=== PATIENT | female | born 1965 | race Caucasian/White ===

== ENCOUNTER → 2020-11-12 14:00 | Outpatient (CLI) | payer BC, SELFPAY ==
--- NOTE | ~2020-11-12 | MR_ITS ---
EXAMINATION: MR cervical spine wo/w con DATE: 11/12/2020 15:03 INDICATION: Neuralgia and neuritis. Neck pain. TECHNIQUE: Magnetic resonance imaging (MRI) of the cervical spine was performed without and with 12 m L MultiHance intravenous contrast. Sequences included sagittal and axial T2-weighted FSE, sagittal ST IR FSE, and sagittal and axial T1-weighted FSE. Postcontrast sequences included sagittal and axial T1 -weighted FS FSE. COMPARISON: None FINDINGS: There is 4 degrees levocurvature of cervicothoracic spine. Vertebral body heights are oscar l. There is mildly decreased disc height at C3-C4, C4-C5, and C5-C6. The spinal cord signal intensity is normal. The following disc levels are specifically discussed: C2-C3: The disc does not extend beyond the endplate margin. There is no uncovertebral joint osteoarth ritis. There is mild right facet joint osteoarthritis. There is no neural foraminal stenosis. There i s no central canal stenosis. C3-C4: The disc is bulging. There is moderate bilateral uncovertebral joint osteoarthritis. There is severe bilateral facet joint osteoarthritis. There is mild bilateral neural foraminal stenosis. There is mild central canal stenosis. C4-C5: The disc is bulging. There is mild right and moderate left uncovertebral joint osteoarthritis. There is mild right and severe left facet joint osteoarthritis. There is mild right and moderate lef t neural foraminal stenosis. There is mild central canal stenosis. C5-C6: The disc is bulging. There is mild right uncovertebral joint osteoarthritis. There is moderate right and mild left facet joint osteoarthritis. There is mild right neural foraminal stenosis. There is mild central canal stenosis. C6-C7: There is a central protrusion. There is mild bilateral uncovertebral joint osteoarthritis. The re is moderate bilateral facet joint osteoarthritis. There is mild bilateral neural foraminal stenosi s. There is no central canal stenosis. C7-T1: The disc does not extend beyond the endplate margin. There is no uncovertebral joint osteoarth ritis. There is severe bilateral facet joint osteoarthritis. There is mild bilateral neural foraminal stenosis. There is no central canal stenosis. IMPRESSION: 1. Moderate cervical spondylosis. Reviewed, dictated and finalized at location A. CULTURAL LENDER
[2020-11-12 14:34] LABS: Estimated Glomerular Filt Rate > 60
== END ==
PROVIDERS: PCP Physician Assistant; Visit Provider Physician Assistant
DX: M79.2 Neuralgia and neuritis, unspecified (principal); M47.22 Other spondylosis with radiculopathy, cervical region
CPT/HCPCS: 72156; A9577

== ENCOUNTER → 2021-12-31 10:18 | Outpatient (CLI) | payer BC, SELFPAY ==
--- NOTE | ~2021-12-31 | DEXA_ITS ---
Bone Density Report Name: KAMRAN FAY Age: 56 Sex: Female Ethnicity: White Date of : 1965 Indication: osteopenia; prior fracture; hysterectomy; postmenopausal Referring Provider: RIVAS CROCKETT Study: Bone densitometry was performed. Exam Date: December 31, 2021 Accession number: [id number] Bone Density: Region BMD T-score Z-score Classification AP Spine (L1, L2, L3) 0.837 -1.6 -0.4 Osteopenia Femoral Neck (Left) 0.655 -1.7 -0.6 Osteopenia Total Hip (Left) 0.856 -0.7 0.1 Normal Femoral Neck (Right) 0.652 -1.8 -0.6 Osteopenia Total Hip (Right) 0.810 -1.1 -0.3 Osteopenia Total Hip Mean 0.833 -0.9 -0.1 Normal World Health Organization criteria for BMD impression classify patients as: Normal (T-score at or above -1.0), Osteopenia (T-score between -1.0 and -2.5), or Osteoporosis (T-score at or below -2.5). 10-year Fracture Risk(1): Major Osteoporotic Fracture 14% Hip Fracture 1.5% Reported Risk Factors: [place] (), Neck BMD=0.652, BMI=24.3, previous fracture (1) FRAX(R) Version 3.08. Fracture probability calculated for an untreated patient. Fracture probability may be lower if the patient has received treatment. Previous Exams: Region Exam Age BMD T-score BMD Change BMD Change Date g/cm2 vs Baseline vs Previous AP Spine(L1, L2, L3) 12/31/2021 56 0.837 -1.6 -0.214* -0.027* 03/03/2019 53 0.864 -1.4 -0.187* -0.202* 08/05/2015 50 1.066 0.4 0.015 0.015 05/15/2011 46 1.051 0.3 Total Hip(Left) 12/31/2021 56 0.856 -0.7 -0.070* -0.021 03/03/2019 53 0.876 -0.5 -0.049* -0.076* 08/05/2015 50 0.952 0.1 0.027 0.027 05/15/2011 46 0.926 -0.1 Total Hip(Right) 12/31/2021 56 0.810 -1.1 -0.071* -0.001 03/03/2019 53 0.811 -1.1 -0.070* -0.096* 08/05/2015 50 0.906 -0.3 0.026 0.026 05/15/2011 46 0.880 -0.5 *Denotes significance at 95% confidence level, LSC for AP Spine = 0.022 g/cm2, LSC for Total Hip = 0.027 g/cm2 Clinical Information Provided by Patient: Has had a low trauma fracture Has used the following medications: Vitamin D, Calcium, MTV Has the following medical conditions: Hysterectomy Patient maximum height was 63.1 Menopause Age: 31 No regular weight bearing exercise Drinks caffeinated beverages Onset of menses at age 12 Number of children 2
== END ==
PROVIDERS: Visit Provider Obstetrics & Gynecology
DX: Z78.0 Asymptomatic menopausal state (principal); M85.88 Other specified disorders of bone density and structure, other site; M85.852 Other specified disorders of bone density and structure, left thigh; M85.851 Other specified disorders of bone density and structure, right thigh
CPT/HCPCS: 77080

== ENCOUNTER 2023-01-04 00:48 | Day surgery (SDC) | payer BC, SELFPAY ==
[2022-12-22 13:16] VITALS: BMI 24.0
[2023-01-04 06:17] VITALS: BP 123/83; PULSE 71; RESP 16; TEMP 36.2; O2SAT 100; BMI 26.1
[2023-01-04] MEDS: LACTATED RINGERS 1,000 ML 150 ML IV CONT (06:25)
--- NOTE | 2023-01-04 07:24 | WPDANESEPPF ---
Anes - Initial Pre Proc Eval Procedure: Operation Date: 01/04/23 07:30 Proposed Procedures p Screening Colonoscopy - Eduardo Lr MD Date/Time: 01/04/23 07:24 Surgeon: Eduardo Lr MD Pre Op Diagnosis: neoplasm screening Patient Data Age: 57 Gender: F Height: 1.6 m Weight: 66.9 kg Last Vital Signs Temp 36.2 C L 01/04/23 06:17 Pulse 71 01/04/23 06:17 Resp 16 01/04/23 06:17 BP 123/83 01/04/23 06:17 Pulse Ox 100 01/04/23 06:17 O2 Del Method Room Air 01/04/23 06:17 Allergies Allergy/AdvReac Type Severity Reaction Status Date / Time iodixanol Allergy Severe Hives / Verified 01/04/23 06:14 Red Face Home Medications Medication Instructions Recorded Confirmed Type multivitamin 1 tablet PO DAILY 09/16/21 01/04/23 History metoprolol succinate 50 mg 50 mg PO DAILY #90 tabs 08/06/22 01/04/23 Rx tablet,extended release 24 hr (Toprol XL) albuterol sulfate 90 mcg/actuation 2 inh inhalation Q6H PRN Shortness 12/22/22 01/04/23 History aerosol inhaler Of Breath calcium 600 mg capsule 600 mg PO DAILY 12/22/22 01/04/23 History simvastatin 10 mg tablet 10 mg PO DAILY 12/22/22 01/04/23 History Patient hx anesthesia problems: none Family hx anesthesia problems: none Results Review: All pre-operative results and documents have been reviewed as part of the pre-operative evaluation. [facility] Past Medical History Medical History Asthma Benign hypertension Benign mole BMI 24.0-24.9, adult C7 radiculopathy Cervical disc disorder at C6-C7 level with radiculopathy Contact dermatitis and eczema Contact dermatitis and eczema Dermatitis Dermatofibroma Ganglion, unspecified site GERD (gastroesophageal reflux disease) Hematuria Hyperlipidemia IBS (irritable bowel syndrome) Neck Pain Post-menopausal Radicular pain in left arm Seasonal allergies Skin cancer screening Skin neoplasm Vaginal delivery x 2 Surgical History Surgical History H/O bilateral cataract extraction H/O: hysterectomy History of back surgery History of cholecystectomy History of Mohsen fundoplication Family History Family History Father Hypertension Family history of coronary artery disease Diabetes mellitus Colon polyp SCC (squamous cell carcinoma) BCC (basal cell carcinoma of skin) Mother Cerebrovascular accident Sibling BCC (basal cell carcinoma of skin) Other Family history of cardiovascular disease Social History Social History Smoking status: Never smoker Second hand tobacco smoke exposure: No Alcohol intake: current Alcohol use details: rarely Substance use: never Substance use type: does not use Living arrangements: with family Occupation/Education: retired Gender identity (if verbalized by the patient): Female Spiritual care concerns: No Anes - Eval Final PreProcedure Day of Procedure 01/04/23 07:24 Patient weight: overweight Heart: regular rate and rhythm Lungs: clear to auscultation and normal air movement Airway: Mallampati scale class II Neurological: alert and oriented Last oral intake: >/= 8 hours ASA classification: II Emergent: no Anesthetic plan: proceed Anesthesia type and monitoring: general GIVS Results Review: All pre-operative results and documents have been reviewed as part of the pre-operative evaluation. Informed Consent: The patient's anesthetic plan and its attendant risks and benefits were discussed with the patient/family/POA. Questions were solicited and answers provided to the satisfaction of the patient/family/POA.
--- NOTE | 2023-01-04 07:52 | PM.HPGS ---
History of Present Illness History of Present Illness Consent: Risks, benefits, and alternatives have been discussed and questions answered. Patient agrees to proceed with procedure. Chief complaint: neoplasm screening Narrative: Josselyn Kwon is a 57 year old female Presents for screening colonoscopy. Patient's current weight appetite and bowel movements are normal. She denies abdominal pain. She has had no bleeding. Family history is significant for colon polyps within the family. Patient's previous colonoscopy 5 years ago was unremarkable. Review of Systems Review of Systems: Review of systems noncontributory. [facility] Past Medical History Medical History Asthma Benign hypertension Benign mole BMI 24.0-24.9, adult C7 radiculopathy Cervical disc disorder at C6-C7 level with radiculopathy Contact dermatitis and eczema Contact dermatitis and eczema Dermatitis Dermatofibroma Ganglion, unspecified site GERD (gastroesophageal reflux disease) Hematuria Hyperlipidemia IBS (irritable bowel syndrome) Neck Pain Post-menopausal Radicular pain in left arm Seasonal allergies Skin cancer screening Skin neoplasm Vaginal delivery x 2 Surgical History Surgical History H/O bilateral cataract extraction H/O: hysterectomy History of back surgery History of cholecystectomy History of Mohsen fundoplication Family History Family History Father Hypertension Family history of coronary artery disease Diabetes mellitus Colon polyp SCC (squamous cell carcinoma) BCC (basal cell carcinoma of skin) Mother Cerebrovascular accident Sibling BCC (basal cell carcinoma of skin) Other Family history of cardiovascular disease Social History Social History Smoking status: Never smoker Second hand tobacco smoke exposure: No Alcohol intake: current Alcohol use details: rarely Substance use: never Substance use type: does not use Living arrangements: with family Occupation/Education: retired Gender identity (if verbalized by the patient): Female Spiritual care concerns: No Meds Home Medications and Allergies Home Medications Medication Instructions Recorded Confirmed Type multivitamin 1 tablet PO DAILY 09/16/21 01/04/23 History metoprolol succinate 50 mg 50 mg PO DAILY #90 tabs 08/06/22 01/04/23 Rx tablet,extended release 24 hr (Toprol XL) albuterol sulfate 90 mcg/actuation 2 inh inhalation Q6H PRN Shortness 12/22/22 01/04/23 History aerosol inhaler Of Breath calcium 600 mg capsule 600 mg PO DAILY 12/22/22 01/04/23 History simvastatin 10 mg tablet 10 mg PO DAILY 12/22/22 01/04/23 History Allergies Allergy/AdvReac Type Severity Reaction Status Date / Time iodixanol Allergy Severe Hives / Verified 01/04/23 06:14 Red Face Vital Signs Vital Signs - 24 hr 01/04/23 06:17 Temperature 97.2 F L Pulse Rate 71 Respiratory Rate 16 Blood Pressure 123/83 Pulse Oximetry 100 Oxygen Delivery Room Air Exam Narrative: Physical exam reveals patient be alert. Vital signs stable. HEENT exam is unremarkable. Lungs are clear to auscultation and percussion. Heart is without murmur or extra sounds. Abdomen bowel sounds are present soft nontender with no organomegaly. Digital external rectal exam is normal. Assessment and Plan Assessment and plan (1) Family history of colonic polyps: Code(s): Z83.71 - Family history of colonic polyps Status: Acute Assessment and Plan: Patient has a family history of colon polyps. Plan for screening colonoscopy. Further recommendations may be given after endoscopy.
[2023-01-04 07:54] VITALS: BP 95/62; PULSE 73; RESP 15; O2SAT 98
[2023-01-04 08:04] VITALS: BP 94/62; PULSE 66; RESP 12; O2SAT 100
[2023-01-04 08:14] VITALS: BP 100/63; PULSE 65; RESP 14; O2SAT 100
== END 2023-01-04 08:25 | disposition home or self-care (01) ==
PROVIDERS: PCP Family Medicine; Visit Provider Internal Medicine Gastroenterology
PROC: 0DJD8ZZ Inspection of Lower Intestinal Tract, Via Natural or Artificial Opening Endoscopic (ICD-10-PCS; CPT 45378; principal; 2023-01-04 07:30)
DX: Z12.11 Encounter for screening for malignant neoplasm of colon (principal); K57.30 Diverticulosis of large intestine without perforation or abscess without bleeding; D12.5 Benign neoplasm of sigmoid colon; Z83.71 Family history of colonic polyps; J45.909 Unspecified asthma, uncomplicated; I10 Essential (primary) hypertension; K21.9 Gastro-esophageal reflux disease without esophagitis; E78.5 Hyperlipidemia, unspecified; Z79.51 Long term (current) use of inhaled steroids
CPT/HCPCS: 45385; 88305; 88342; J2704; J7120

== ENCOUNTER 2024-01-27 09:11 | Outpatient (CLI) | payer BC, SELFPAY ==
--- NOTE | ~2024-01-27 | XR_ITS ---
EXAMINATION: XR lumbar spine 2-3V DATE: 01/27/2024 09:47 INDICATION: Low back pain TECHNIQUE: Anteroposterior and lateral views of the lumbar spine, and cone-down lateral view of the l umbosacral junction were obtained. COMPARISON: None. FINDINGS: There are changes of anterior posterior fusion at L4-5. Bone alignment is normal. There is no fracture. There is mild loss of intervertebral disc space height at L5-S1 and L2-3. The vertebral body heights are maintained. Surgical clips in the right upper quadrant are likely from prior cholecy stectomy. IMPRESSION: 1. Surgical changes and mild lumbar spondylosis without acute findings. Reviewed, dictated and finalized at location F.
--- NOTE | ~2024-01-27 | XR_ITS ---
EXAMINATION: XR hip LT 2V w AP pelvis INDICATION: Left hip pain TECHNIQUE: AP view the pelvis and two views of the left hip are obtained COMPARISON: None available FINDINGS: Bone alignment is normal. There is no fracture. Surgical changes are noted at L5-S1. The so ft tissues are unremarkable. IMPRESSION: 1. No acute osseous abnormality. Reviewed, dictated and finalized at location F.
== END 2024-01-27 09:12 ==
PROVIDERS: PCP Chiropractor; Visit Provider Chiropractor
DX: M53.3 Sacrococcygeal disorders, not elsewhere classified (principal); M47.896 Other spondylosis, lumbar region
CPT/HCPCS: 72100; 73502

== ENCOUNTER 2025-01-25 01:08 | Day surgery (SDC) | payer OTHER, SELFPAY ==
[2025-01-17 14:17] VITALS: BMI 24.7
--- OUTSIDE RECORDS SUMMARY | 2025-01-25 01:13 | XMS_ITS | Clinical Summary ---
Author Organization [facility] Address [address] 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 Gender Identity Not on file Sexual Orientation Not on file Plan of Treatment Health Maintenance Due Date Last Done Comments DTAP/TDAP/TD VACCINES (1 - Tdap) 1983 PAP SMEAR 1985 CERVICAL CANCER SCREENING 1994 HPV/Cotest 1994 PAP SMEAR 1994 BREAST CANCER SCREENING 2004 COLORECTAL SCREENING 2009 Colorectal Cancer Screening 2009 FIT-DNA Q 3 years 2009 FIT/FOBT Q 1 year 2009 Flex Sig/CT Colonography Q 5 years 2009 ZOSTER VACCINE (1 of 2) 2014 INFLUENZA VACCINE (#1) 2024 RSV VACCINE (60+ or ) (1 - 1-dose 75+ series) 2039 HEPATITIS B VACCINES Aged Out No long er eligible based on patient's age to complete this topic Care Teams It Specialist Relationship Specialty Start Date End Date Zulma Roberts MD [address] [place] [address] PCP - General Family Practice 11/30/22
--- OUTSIDE RECORDS SUMMARY | 2025-01-25 01:13 | XMS_ITS | Encounter Summary ---
Author Organization [facility] Address [address] [place] [address] Care Team Providers Care Jitney Driver Name Role Phone Zulma Roberts MD Primary Care Provider [phone] Encounter Details Date Type Department Care Team (Late st Contact Info) Description 12/19/2024 Results Follow-Up [facility] [address] [place] [address] Krystal Nelson NP [address] [place] [address] Social History Tobacco Use Types Packs/Day Years Used Date Smoking Tobacco: Never Smokeless Tobacco: Never Alcohol Use Standard Drinks/Week Comments No 0 (1 standard drink = 0.6 oz pur e alcohol) Comments Unknown Sex and Gender Information Value Date Recorded Sex Assigned at Not on file Legal 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 Gender Identity Not on file Sexual Orientation Not on file documented as of this encounter Plan of Treatment Not on file documented as of this encounter Visit Diagnoses Not on filedocumented in this encounter Additional Health Concerns Infection Onset Date Last Indicated Resolved Time COVID: Suspected 12/19/2024 12/19/2024 12/19/2024 11:48 AM PAPER BOX CUTTER Influenza, adult 12/19/2024 12/19/2024 12/26/2024 3:05 AM PAPER BOX CUTTER documented as of this encounter Care Teams Jitney Driver Relationship Specialty Start Date End Date Zulma Roberts MD PCP - General Family Medicine 05/21/22 documented as of this encounter
--- OUTSIDE RECORDS SUMMARY | 2025-01-25 01:13 | XMS_ITS | Continuity of Care Document ---
Author Organization [facility] Address [address] [place] [address] [address] [facility] [address] [place] [address] Phone Care Team Providers Care Glazing Machine Operator Name Role Phone Michel Vo Unavailable Unavailable Advance Directives Directive Yes / No Effective Date File Name No Information Encounters Encounter Description Practice Location Reason(s) For Visit Diagnoses Date Provider Providers Copied on Encounter [facility], [address] [place] [address] [address], [place], [place], [id number], [place] tel:[phone] [facility] No Information 1-[address] Gilda Pearson. [address] , [address], [place], [address], [place]. tel:[phone] Family History Family Member Type Diagnosis Age At Onset No Information Payers Payer name Insurance type Covered libertarian ID Authoriza tion(s) No Information Social History Type Description Quantity Date Captured Comments Sex Female Smoking Status No Information Chief Complaint And Reason For Visit No Information Reason For Referral Reason For Referral No Information History Of Present Illness Encounter Date Complaint History Of Prese nt Illness No Information Functional Status Date Functional Assessmen t No Information Instructions Date Instruction Additional Infor mation No Information Assessments Type Assessment Date No Information Patient Care Teams Name Effective Dates (start - stop) Status Members No Information
--- OUTSIDE RECORDS SUMMARY | 2025-01-25 01:13 | XMS_ITS | Data Portability ---
Author Organization [facility], Main Office Address [address] [place] [address] [address] [place] [address] Care Team Providers Care Continuity Writer Name Role Phone RIVAS CROCKETT Referring Provider [phone] RIVAS CROCKETT Primary Care Provider [phone] Assessment No assessment recorded. Plan of Treatment Reminders Order Date Submit Date Provider Last Modified By Organization Details Last Modified Time Details Appointments None record ed. Lab None record ed. Referral None record ed. Procedures None record ed. Surgeries None record ed. Imaging None record ed. Medication Orders None record ed. Patient TargetsNo targets recorded. Patient Instructions Encounter Date Encounter Id Patient Instructions Last Modified By Organization Details Last Modified Time 09/10/2018 [id number] Patient counsele d to F/U immediately if temp. greater than 100.4, if is unable to urinate, increased rectal pain or any other concerns. Not available 09/15/2018 18:53:27 She will follow up with me only as needed. I advised that if she feels she needs another treatment the soonest I would see her would be in 8 weeks. On today's visit I spent a total of {{20# 30 35 40 45 50 55 60}} minutes [id number] with the patient and over 50% of this time was spent discussing treatment options, risks/benefits of each option and alternatives. Not available 09/15/2018 18:54:05 Reason for Referral None Reported. Problems Name Problem SNOMED Code Status Onset Date Resolution Date Notes Provider Name and Address Organization Details Recorded Time External hemorrhoids 26199909 Active 2016 Shannon Pina MD [address], [place], [address] , [facility] 11/05/201 8 23:52:45 Residual hemorrhoidal skin tags 41729399 Active 2016 Shannon Pina MD [address] [place] [address],[address], [address], [facility] 8 23:53:04 Pile easily reducible 249667153 Active 2016 Tx #1: 12/08/16 1.2 x 10 LL Tx #2: 7 1.2 x 8 RP Tx #3: 7 1.1 x 6 RA Tx #4: 7 1.2 x 6 LL Tx #5: 03/05/17 1.2 x 4 RP and 1.2 x 3 RA Tx #6: 1.2 x 5 RP, x 5 LL and x 2 RA Shannon Pina MD [address] [place] [address],[address], [address] , [facility] 8 18:41:55 Screening for malignant neoplasm of colon Active 2017 Shannon Pina MD [address] [place] [address],[address], [address], [facility] 8 18:52:53 Problem Notes None recorded. Procedures Surgical History Date Name Laterality Status Provider Name and Address Organization Details Recorded Time 09/10/20 18 IRC completed Shannon Pina MD [address] [place] [address],[address], [place], [address], [facility] 09/15/2018 18:42:43 08/01/20 18 Date of Last Pap Smear [facility] 09/10/2018 13:35:31 03/01/20 18 Date of Last Mammogram completed [facility] 09/10/2018 13:35:28 11/01/19 18 Colonoscopy completed [facility] 09/10/2018 13:34:31 11/01/19 09 Colonoscopy completed Shannon Pina MD [address], [place], [address], [facility] 09/05/2018 23:52:08 11/01/18 98 Back Surgery completed [facility] 09/10/2018 13:34:40 Unlisted px posterior segmnt completed [facility] 07/19/2018 13:29:41 Cholecystectomy completed [facility] 07/19/2018 13:31:18 Hysterectomy completed [facility] 07/19/2018 13:31:28 Unlisted procedure stomach completed [facility] 07/19/2018 13:32:37 Bladder Surgery completed [facility] 09/10/2018 13:35:01 Mohsen fundoplication completed [facility] 09/10/2018 13:35:09 Imaging Results None recorded. Procedure Notes None recorded. Medical Equipment None Reported. Allergies Allergen ID Allergen Name Allergen Category Reaction Reaction Severity Criticality Documentation Date Start Date Code Code System Note Provider Name and Address Organization Details Recorded Time 1613 Visipaque medicatio n Not available Not available Not available 07/19/2018 90457 1 RxNorm Not Available Not Available Not Available Medications Name Sig Start Date Stop Date Status Note LastModified by Organization Details LastModified Time Toprol XL 50 mg tablet,ext ended release Take 1 tablet every day by oral route. active Not Available Not Available No t Available Fish Oil active Not Available Not Avai lable Not Available fiber active Not Available Not Availa ble Not Available Mobic active Not Available Not Availa ble Not Available turmeric active Not Available Not Avai lable Not Available Vitals Date Recorded Body weight Body mass index (BMI) Body height Body temperature Respiratory rate Heart rate Systolic blood pressure Diastolic blood pressure Provider Name and Address Organization Details Last Updated DateTime 8 [address]3080.6 9 g 23.9 kg/m2 160.02 cm 98.5 [degF] 12 /min 75 /min 125 mm[Hg] 84 mm[Hg] [facility] 8 13:44:04 Social History Question Answer Notes LastModified by Organizat ion Details LastModified Time Tobacco Smoking Status Never Smoker Sammie barnett, [facility] 07/19/2018 13:34:00 How Much Tobacco Do You Chew? None [email or web address] Information not available 07/19/2018 Alcohol Use Yes [email or web address] Information not available 09/10/2018 Caffeine Use Yes [email or web address] Informatio n not available 09/10/2018 Caffeine Type Iced Tea [email or web address] Informati on not available 09/10/2018 Caffeine Amount 1-2/day [email or web address] Information not available 09/10/2018 Illicit Drug Use No [email or web address] Information not available 07/19/2018 What Was The Date Of Your Most Recent Tobacco Screening? 09/15/2018 Information n ot available 05/25/2019 Sex: Unknown Functional Status None recorded. Mental Status None recorded. Family History Relationship Description Onset Age of this Age Resolved Age Notes LastModified by Organization Details LastModified Time Father Coronary arterioscler osis 52 Not available 08/2018 13:32:44 Father Myocardial infarction 52 [email or web address] Not available 13:32:55 Father Polyp of colon [email or web address] Not available 08/2018 13:33:05 Father Hypertensive disorder [email or web address] Not available 08/2018 13:33:10 Mother Cerebrovascu lar accident 65 Not available 09/10/2018 13:33:30 Medical History Condition Response Arthritis/Gout Y Reflux/GERD Y Hypertension Y High Cholesterol Y Gynecological History Statement/Question Response Number of Pregnancies? 2 Tear or Laceration During Delivery? N Date of Last Mammogram 03/01/2018 Could You Be or Are You Currently Pregna nt? N Number of C-Sections? 0 Number of Vaginal Deliveries? 2 Accidental Bowel Leakage Post Delivery? N Episiotomy During Delivery? Y Date of Last Pap Smear 08/01/2018 Obstetrics History GPAL:G 0 P 0 0 0 0 Past Encounters Encounter ID Performer Location Encounter Start Date Encounter Closed Date Diagnosis/Indication Diagnosis SNOMED-CT Code Diagnosis ICD10 Code Diagnosis Note [id number] Shannon Pina MD Main Office [address] [facility] [address] [place] [address] 09/10/2018 12:48:16 09/10/2018 14:13:48 Pile easily reducible 258710895 K64.1 Stage 2 internal hemorrhoid s: She has done well with infrared coagulatio n in the past and I think she would benefit now. I reviewed full informed consent with her including risks/bene fits and alternativ es. She wanted to proceed with treatment. Her 6th overall (1st in this series) treatment was done today on all 3 areas. External hemorrhoids 239 38609 K64.4 These will improve with IRC. She understand s the only way to directly treat external hemorrhoid s would be with surgery and she does not wish to pursue this and her hemorrhoid s are not bad enough to require surgery. She of course needs to continue with her high fiber diet and drinking plenty of water to maintain soft daily BM's. I advised her to take a fiber supplement if she needs. Screening for malignant neoplasm of colon 064633877 Z12.11 She is up to date with her colonoscop ies and is not due again until the spring. Health Concerns Section Related Observation LastModified by Organization Detai ls LastModified Time None Recorded Concern Status LastModified by Organization Details LastModified Time None Recorded Advance Directives Directive None Recorded Payers Encounter Date Sequence Insurance Name Policy Number Policy Galarza Covered Member ID Galarza Member ID Guarantor Name 09/10/2018 1 [place] ([place] [id number] Sean Kwon [id number] Sean Kwon Notes Date Note Type Note Provider Name and Address Organization Details Recorded Time 09/10/2018 text/html See previous visits. She states she was doing extremely well until she had her colonoscopy last spring. This caused her symptoms to flare somewhat. Initially they were minor and intermittent but they have been worsening/becomeing more persistent. Bleeding: She has had only a minimal amount of bright red blood on the wipe on a few occasions. She has not had any heavy bleeding and no leakage of blood in between BM's. Pain: None Itching: She has had some minor itching. Discharge: It is sometimes hard to get clean after BM's because of swelling and irritation. She does not have difficulty staying clean - she does not have to re-wipe. She has no drainage. Prolapse: No External swelling: She has had some external swelling after BM's and when she is more flared. Discomfort: She has some external irritation and discomfort. She has minor internal pressure, a sense of being blocked when trying to have a BM and a sense of incomplete emptying after BM's. Previous Hemorrhoid Treatment: Only the IRC treatments here. Previous Lower GI Endoscopy: She is up to date on her colonoscopies Bowel Habits: Her BM's have been soft and daily with dietary fiber. Shannon Pina MD [address], [place], [address], [facility] 09/15/2018 18:55:15 OBGyn Episode No OBEpisode recorded.
--- OUTSIDE RECORDS SUMMARY | 2025-01-25 01:13 | XMS_ITS | Clinical Summary ---
Author Organization [facility] [address] Address [address] [place] [address] Care Team Providers Care Front Desk Assistant Name Role Phone Zulma Roberts MD Primary Care Provider [phone] Allergies Active Allergy Reactions Criticality Noted Date Comments Iodixanol Hives,Swelling Medium Medications metoprolol XL (TOPROL-XL) 50 mg 24 hr tablet Take 1 tablet (50 mg total) by mouth daily Active albuterol HFA (PROVENTIL HFA,VENTOLIN HFA,PROAIR HFA) 90 mcg/actuation inhalerIndication s:H/O wheezing Inhale 2 puffs every 6 (six) hours as needed for wheezing 3 each 4 2 Active guselkumab (Tremfya) 100 mg/mL syringe subcutaneous syringe mg, 0 4 Active loteprednol 0.2 % drops,suspension 1 drop 2 (two) times a day 5 Active simvastatin (ZOCOR) 10 mg tablet Take 1 tablet (10 mg total) by mouth daily Active benzonatate (TESSALON) 200 mg capsuleIndication s:Influenza A Take 1 capsule (200 mg total) by mouth 3 (three) times a day as needed for cough keep tessalon out of reach of children, especially children under the age of 10, due to possible serious risk such as if ingested by children under the age of 10. 30 capsule 5 Active Active Problems Problem Noted Date Diagnosed Date Palpitations 11/22/2018 Hypoglycemia 03/17/2014 Overview (02/05/2017): HYPOGLYCEMIA NOS Knee pain 11/02/2013 Encounters Date Type Department Care Team Description 12/19/2024 11:45 AM TELEMARKETING MANAGER Ancillary Procedure [facility] Imaging at [address] [address] Influenza A 12/19/2024 11:30 AM TELEMARKETING MANAGER Office Visit [facility] at [address] [phone] Krystal Nelson NP Influenza A (Primary Dx); Exacerbation of asthma, unspecified asthma severity, unspecified whether persistent 12/19/2024 Results Follow-Up [facility] at [address] [phone] Krystal Nelson NP 11/16/2024 12:17 PM TELEMARKETING MANAGER - 11/16/2024 11:59 PM TELEMARKETING MANAGER Hospital Encounter [facility] [address] [place] [address] Discharge Disposition: Discharge to home or self care 11/16/2024 12:15 PM TELEMARKETING MANAGER Office Visit [facility] [address] [place] [address] Doanld Urbina PA Contusion of right knee, initial encounter (Primary Dx); Acute pain of right knee from Last 3 Months Surgical History Surgery Date Site/Laterality Comments CHOLECYSTECTOMY Cholecystectomy HYSTERECTOMY 11/01/1996 - 10/31/1997 DIANNE FUNDOPLICATION 11/01/2006 - 10/31/2007 Medical History Medical History Date Comments Hx Other Medical fundoplication Hypertension Dizziness Hyperlipidemia Acid indigestion Arthritis Family History Medical History Relation Name Comments Heart attack Father Hyperlipidemia Father [place] disease Mother Stroke Mother Other Other No family histo ry of Diabetes mellitus; Hypothyroidism Sister Relation Name Status Comments Brother (Age 3 days) Father Alive Mother (Age 65) Other Sister Alive Social History Tobacco Use Types Packs/Day Years Used Date Smoking Tobacco: Never Smokeless Tobacco: Never Alcohol Use Standard Drinks/Week Comments No 0 (1 standard drink = 0.6 oz pur e alcohol) Comments Unknown Sex and Gender Information Value Date Recorded Sex Assigned at Not on file Legal Sex Female 1:34 AM TELEMARKETING MANAGER Gender Identity Not on file Sexual Orientation Not on file Obstetrics History Last Filed Vital Signs Vital Sign Reading Time Taken Comments Blood Pressure 142/90 12/19/2024 11:27 AM TELEMARKETING MANAGER Pulse 98 12/19/2024 11:44 AM TELEMARKETING MANAGER Temperature 36.9 C (98.5 F) 12/19/2024 11:27 AM TELEMARKETING MANAGER Respiratory Rate 20 12/19/2024 11:27 AM TELEMARKETING MANAGER Oxygen Saturation 99% 12/19/2024 11:44 AM TELEMARKETING MANAGER Inhaled Oxygen Concentration - - Weight 63.5 kg (140 lb) 12/19/2024 11:27 AM TELEMARKETING MANAGER Height 160 cm (5' 3 ) 11/16/2024 12:10 PM TELEMARKETING MANAGER Body Mass Index 24.8 11/16/2024 12:10 PM TELEMARKETING MANAGER Plan of Treatment Health Maintenance Due Date Last Done Comments Breast Cancer Screening-Mammogram 1964 Colon Cancer Screening-Colonoscopy 1965 Depression Screening 1964 Hepatitis C Screening 1964 DTaP/Tdap/Td Vaccine (1 - Tdap) 1975 Hepatitis B Screening 1982 Regular Well Visit/Exam 18-64 1982 Pneumococcal vaccine <65 (1 of 2 - PCV) 1983 Zoster Vaccine (1 of 2) 2014 Covid-19 Vaccine (4 - 2023-2 5 season) 2024 11/04/2021, 02/03/2021, 01/13/2021 Influenza Vaccine (#1) 2024 , 08/05/2020, 08/03/2019, Additional history exists Procedures Procedure Name Priority Date/Time Associated Diagnosis Comments XR CHEST PA LATERAL 2 VIEWS Schedule JAH, Read JAH (Appt Today, Awaiting Results) 12/19/2024 11:51 AM TELEMARKETING MANAGER Influenza A POC INFLUENZA A/B, COVID-19 ANTIGEN Routine 12/19/2024 11:47 AM TELEMARKETING MANAGER Influenza A POCT RAPID STREP Routine 12/19/2024 11:4 6 AM TELEMARKETING MANAGER Influenza A XR KNEE RIGHT 3 VIEWS Schedule Routine, Read Routine (OP Routine) 11/16/2024 12:25 PM TELEMARKETING MANAGER Acute pain of right knee from Last 3 Months Results * XR Chest PA Lateral 2 Views (12/19/2024 11:51 AM TELEMARKETING MANAGER) Anatomical Region Laterality Modality Body, Chest N/A Digital Radiogra phy 12/19/2024 12:3 2 PM TELEMARKETING MANAGER Narrative 12/19/2024 12:32 PM TELEMARKETING MANAGER EXAM DESCRIPTION: XR CHEST PA LATERAL 2 VIEWS REASON FOR STUDY: cough Influenza +. Pt complains of cough since . History of asthma, and right chest tube before. Non-smoker. TECHNIQUE: Frontal and lateral radiographic view(s) of the chest. COMPARISON: None FINDINGS: LUNGS: No focal opacity, pleural effusion, or pneumothorax. HEART/MEDIASTINUM: Cardiac silhouette normal in size. Mediastinal and hilar contours appear normal. LINES/TUBES: None. BONES: No acute osseous abnormality. IMPRESSION: No acute cardiopulmonary abnormality. THIS IS AN ELECTRONICALLY VERIFIED FINAL REPORT 12/19/2024 12:32 PM - Electronically signed by Serjio Guerrero M.D. AM T: Report ID: [id number] Reading Location: [id number] Procedure Note Serjio Guerrero MD - 12/19/2024 EXAM DESCRIPTION: XR CHEST PA LATERAL 2 VIEWS REASON FOR STUDY: cough Influenza +. Pt complains of cough since . History of asthma, and right chest tube before. Non-smoker. TECHNIQUE: Frontal and lateral radiographic view(s) of the chest. COMPARISON: None FINDINGS: LUNGS: No focal opacity, pleural effusion, or pneumothorax. HEART/MEDIASTINUM: Cardiac silhouette normal in size. Mediastinal andhilar contours appear normal. LINES/TUBES: None. BONES: No acute osseous abnormality. IMPRESSION: No acute cardiopulmonary abnormality. THIS IS AN ELECTRONICALLY VERIFIED FINAL REPORT 12/19/2024 12:32 PM - Electronically signed by Serjio Guerrero M.D. AM T: Report ID: [id number] Reading Location: [id number] Krystal Nelson SHORE WORKING SUPERVISOR IMG XR PROCEDURES Final Result * (ABNORMAL) POC Influenza A/B, COVID-19 antigen (12/19/2024 11:47 AM TELEMARKETING MANAGER) Influenza A Ag, POC Positive(A) Negative [facility] Influenza B Ag, POC Negative Negative [facility] COVID-19 Ag POC Presumptive Negative Presumptive Negative, Invalid [facility] Nasal 12/19/2024 11:4 7 AM TELEMARKETING MANAGER Krystal Nelson NP POINT OF CARE TEST ORDERABLES F inal Result Performing Organization Address City/State/[facility] de Phone Number [facility] [address] [place] [address] * POCT rapid strep A (12/19/2024 11:46 AM TELEMARKETING MANAGER) Rapid Strep A, POC Negative Negative Swab 12/19/2024 11:4 6 AM TELEMARKETING MANAGER Krystal Nelson NP POINT OF CARE TEST ORDERABLES F inal Result * XR Knee Right 3 View (11/16/2024 12:25 PM TELEMARKETING MANAGER) Anatomical Region Laterality Modality Lower Extremities, Knee Right Computed Radiography 11/16/2024 3:55 PM TELEMARKETING MANAGER Impressions 11/16/2024 4:07 PM TELEMARKETING MANAGER 1. Normal right knee radiographs. Dictated by: Johnny Duron MD The radiology attending physician has personally reviewed this study, and had reviewed and/or edited this written report and agrees with it. Electronically signed by: Amaury Rowland M.D. Narrative 11/16/2024 4:07 PM TELEMARKETING MANAGER EXAMINATION: XR KNEE RIGHT 3 VIEWS HISTORY: Two-day of anterior right knee pain FINDINGS: 3 views of the right knee are interpreted comparison to radiographs 02/21/2016. No acute fracture. Joint spacing and alignment is within normal limits. NO knee joint effusion. Procedure Note Amaury Rowland MD - 11/16/2024 EXAMINATION: XR KNEE RIGHT 3 VIEWS HISTORY: Two-day of anterior right knee pain FINDINGS: 3 views of the right knee are interpreted comparison to radiographs 02/21/2016. No acute fracture. Joint spacing and alignment is within normal limits. NO knee joint effusion. IMPRESSION: 1. Normal right knee radiographs. Dictated by: Johnny Duron MD The radiology attending physician has personally reviewed this study, and had reviewed and/or edited this written report and agrees with it. Electronically signed by: Amaury Rowland M.D. Donald SMALL IMG XR PROCEDURES Final Result from Last 3 Months Insurance bulletn. [place] [facility] Care Teams Front Desk Assistant Relationship Specialty Start Date End Date Zulma Roberts MD PCP - General Family Medicine 05/21/22
--- OUTSIDE RECORDS SUMMARY | 2025-01-25 01:13 | XMS_ITS | Referral Summary ---
Author Organization [facility] [place] [address] Address [address] [place] [address] Care Team Providers Care Stone Mill Operator Name Role Phone Zulma Roberts MD Primary Care Provider [phone] Encounters Date Type Department Care Team Description 12/19/2024 Results Follow-Up [facility] Convenient Care at [address] [phone] Krystal Nelson NP 12/19/2024 11:45 AM ENGINEER DESIGN AND CONSTRUCTION Ancillary Procedure [facility] Imaging at [address] [phone] Influenza A 12/19/2024 11:30 AM ENGINEER DESIGN AND CONSTRUCTION Office Visit [facility] Convenient Care at [address] [phone] Krystal Nelson NP Influenza A (Primary Dx); Exacerbation of asthma, unspecified asthma severity, unspecified whether persistent 11/16/2024 12:17 PM ENGINEER DESIGN AND CONSTRUCTION - 11/16/2024 11:59 PM ENGINEER DESIGN AND CONSTRUCTION Hospital Encounter [facility] [address] [place] [phone] Discharge Disposition: Discharge to home or self care 11/16/2024 12:15 PM ENGINEER DESIGN AND CONSTRUCTION Office Visit [facility] [address] [place] [phone] Donald Urbina PA Contusion of right knee, initial encounter (Primary Dx); Acute pain of right knee from Last 3 Months Allergies Active Allergy Reactions Criticality Noted Date [...] Overview (02/05/2017): HYPOGLYCEMIA NOS Knee pain 11/02/2013 Social History Tobacco Use Types Packs/Day Years Used Date Smoking Tobacco: Never Smokeless Tobacco: Never Alcohol Use Standard Drinks/Week Comments No 0 (1 standard drink = 0.6 oz pur e alcohol) Comments Unknown Sex and Gender Information Value Date Recorded Sex Assigned at Not on file Legal Sex Female 1:34 AM ENGINEER DESIGN AND CONSTRUCTION Gender Identity Not on file Sexual Orientation Not on file Last Filed Vital Signs Vital Sign Reading Time Taken Comments Blood Pressure 142/90 12/19/2024 11:27 AM ENGINEER DESIGN AND CONSTRUCTION Pulse 98 12/19/2024 11:44 AM ENGINEER DESIGN AND CONSTRUCTION Temperature 36.9 C (98.5 F) 12/19/2024 11:27 AM ENGINEER DESIGN AND CONSTRUCTION Respiratory Rate 20 12/19/2024 11:27 AM ENGINEER DESIGN AND CONSTRUCTION Oxygen Saturation 99% 12/19/2024 11:44 AM ENGINEER DESIGN AND CONSTRUCTION Inhaled Oxygen Concentration - - Weight 63.5 kg (140 lb) 12/19/2024 11:27 AM ENGINEER DESIGN AND CONSTRUCTION Height 160 cm (5' 3 ) 11/16/2024 12:10 PM ENGINEER DESIGN AND CONSTRUCTION Body Mass Index 24.8 11/16/2024 12:10 PM ENGINEER DESIGN AND CONSTRUCTION Plan of Treatment Not on file Procedures Procedure Name Priority Date/Time Associated Diagnosis Comments XR CHEST PA LATERAL 2 VIEWS Schedule JAH, Read JAH (Appt Today, Awaiting Results) 12/19/2024 11:51 AM ENGINEER DESIGN AND CONSTRUCTION Influenza A POC INFLUENZA A/B, COVID-19 ANTIGEN Routine 12/19/2024 11:47 AM ENGINEER DESIGN AND CONSTRUCTION Influenza A POCT RAPID STREP Routine 12/19/2024 11:4 6 AM ENGINEER DESIGN AND CONSTRUCTION Influenza A XR KNEE RIGHT 3 VIEWS Schedule Routine, Read Routine (OP Routine) 11/16/2024 12:25 PM ENGINEER DESIGN AND CONSTRUCTION Acute pain of right knee from Last 3 Months Results * XR Chest PA Lateral 2 Views (12/19/2024 11:51 AM ENGINEER DESIGN AND CONSTRUCTION) Anatomical Region Laterality Modality Body, Chest N/A Digital Radiogra phy 12/19/2024 12:3 2 PM ENGINEER DESIGN AND CONSTRUCTION Narrative 12/19/2024 12:32 PM ENGINEER DESIGN AND CONSTRUCTION EXAM DESCRIPTION: XR CHEST PA LATERAL 2 [...] Serjio Guerrero M.D. AM T: Report ID: [id number] Reading Location: [id number] Procedure Note Serjio Guerrero MD - 12/19/2024 [...] Serjio Guerrero M.D. AM T: Report ID: [id number] Reading Location: [place] [address] Krystal Nelson ECONOMIC GEOGRAPHER IMG XR PROCEDURES Final Result * (ABNORMAL) POC Influenza A/B, COVID-19 antigen (12/19/2024 11:47 AM ENGINEER DESIGN AND CONSTRUCTION) Pathologist [facility] Influenza A Ag, POC Positive(A) Negative [facility] [place] [facility] Influenza B Ag, POC Negative Negative [facility] COVID-19 Ag POC Presumptive Negative Presumptive Negative, Invalid [facility] Nasal 12/19/2024 11:4 7 AM ENGINEER DESIGN AND CONSTRUCTION Krystal Nelson NP POINT OF CARE TEST ORDERABLES F inal Result [facility] [address] [place] [address] * POCT rapid strep A (12/19/2024 11:46 AM ENGINEER DESIGN AND CONSTRUCTION) Rapid Strep A, POC Negative Negative Swab 12/19/2024 11:4 6 AM ENGINEER DESIGN AND CONSTRUCTION Krystal Nelson NP POINT OF CARE TEST ORDERABLES F inal Result * XR Knee Right 3 View (11/16/2024 12:25 PM ENGINEER DESIGN AND CONSTRUCTION) Anatomical Region Laterality Modality Lower Extremities, Knee Right Computed Radiography 11/16/2024 3:55 PM ENGINEER DESIGN AND CONSTRUCTION Impressions 11/16/2024 4:07 PM ENGINEER DESIGN AND CONSTRUCTION 1. Normal right knee radiographs. Dictated by: Johnny Duron MD The radiology attending physician has personally reviewed this study, and had reviewed and/or edited this written report and agrees with it. Electronically signed by: Amaury Rowland M.D. Narrative 11/16/2024 4:07 PM ENGINEER DESIGN AND CONSTRUCTION EXAMINATION: XR KNEE RIGHT 3 VIEWS HISTORY: [...] Final Result from Last 3 Months Insurance [facility] CHOICE PLUS [facility] [place] [address] Care Teams Stone Mill Operator Relationship Specialty Start Date End Date Zulma Roberts MD PCP - General Family Medicine 05/21/22
[2025-01-25 08:02] VITALS: BP 141/85; PULSE 72; RESP 16; TEMP 36.2; O2SAT 100; BMI 25.8
[2025-01-25] MEDS: LACTATED RINGERS 1,000 ML 150 ML IV CONT (08:10)
--- NOTE | 2025-01-25 08:53 | WPDANESEPPF ---
Anes - Initial Pre Proc Eval Procedure: Operation Date: 01/25/25 09:15 Proposed Procedures p Esophagogastroduodenoscopy - David Leonard MD Date/Time: 01/25/25 08:53 Surgeon: David Leonard MD Pre Op Diagnosis: GERD Patient Data Age: 59 Gender: F Height: 1.6 m Weight: 66.1 kg Last Vital Signs Temp 97.2 F L 01/25/25 08:02 Pulse 72 01/25/25 08:02 Resp 16 01/25/25 08:02 BP 141/85 H 01/25/25 08:02 Pulse Ox 100 01/25/25 08:02 O2 Del Method Room Air 01/25/25 08:02 Allergies Allergy/AdvReac Type Severity Reaction Status Date / Time iodixanol Allergy Severe Hives / Verified 01/25/25 08:00 Red Face Home Medications ?Medication ?Instructions ?Recorded ?Confirmed ?Type multivitamin 1 tablet PO DAILY 09/16/21 01/25/25 History albuterol sulfate 90 mcg/actuation 2 inh inhalation Q6H PRN Shortness 12/22/22 01/17/25 History aerosol inhaler Of Breath calcium 600 mg capsule 600 mg PO DAILY 12/22/22 01/25/25 History clobetasol 0.05 % topical cream 1 applic topical BID #45 grams 10/13/23 01/17/25 Rx fluocinonide 0.05 % topical 1 applic topical BID #60 mL 10/13/23 01/17/25 Rx solution metoprolol succinate 50 mg 50 mg PO DAILY #90 tabs 08/08/24 01/25/25 Rx tablet,extended release 24 hr (Toprol XL) guselkumab 100 mg/mL subcutaneous 100 mg subcut ONCE 10/18/24 01/17/25 History auto-injector (Tremfya) simvastatin 10 mg tablet 10 mg PO DAILY #90 tabs 11/02/24 01/25/25 Rx Patient hx anesthesia problems: none Family hx anesthesia problems: none Results Review: All pre-operative results and documents have been reviewed as part of the pre-operative evaluation. [facility] Past Medical History Medical History Ganglion, unspecified site Contact dermatitis and eczema Skin neoplasm Post-menopausal Dermatofibroma Dermatitis Benign mole Skin cancer screening Cervical disc disorder at C6-C7 level with radiculopathy Radicular pain in left arm Neck Pain C7 radiculopathy Vaginal delivery x 2 Hematuria BMI 24.0-24.9, adult IBS (irritable bowel syndrome) Contact dermatitis and eczema Benign hypertension Hyperlipidemia Asthma Seasonal allergies GERD (gastroesophageal reflux disease) Surgical History Surgical History H/O bilateral cataract extraction History of Mohsen fundoplication History of cholecystectomy H/O: hysterectomy History of back surgery Family History Family History Father Hypertension Family history of coronary artery disease Diabetes mellitus Colon polyp SCC (squamous cell carcinoma) BCC (basal cell carcinoma of skin) Mother Cerebrovascular accident Sibling BCC (basal cell carcinoma of skin) Other Family history of cardiovascular disease Social History Social History Smoking status: Never smoker Second hand tobacco smoke exposure: No Alcohol intake: current Alcohol use details: rarely Substance use: never Substance use type: does not use Living arrangements: with family Occupation/Education: retired Gender identity (if verbalized by the patient): Female Spiritual care concerns: No Anes - Eval Final PreProcedure Day of Procedure 01/25/25 08:53 Patient weight: normal Heart: regular rate and rhythm Lungs: clear to auscultation Airway: Mallampati scale class II Neurological: alert and oriented Last oral intake: >/= 8 hours ASA classification: III Emergent: no Anesthetic plan: proceed Anesthesia type and monitoring: general GIVS and standard monitoring Results Review: All pre-operative results and documents have been reviewed as part of the pre-operative evaluation. Informed Consent: The patient's anesthetic plan and its attendant risks and benefits were discussed with the patient/family/POA. Questions were solicited and answers provided to the satisfaction of the patient/family/POA.
--- NOTE | 2025-01-25 08:54 | PM.HPGS ---
History of Present Illness History of Present Illness Consent: Risks, benefits, and alternatives have been discussed and questions answered. Patient agrees to proceed with procedure. Chief complaint: GERD Narrative: Josselyn Kwon is a 59 year old female with h/o gerd using tums only as needed, remote amisha surgery, also intermittent choking sensation Review of Systems Review of Systems: All systems reviewed & are unremarkable except as noted in HPI and below PMFSH Past Medical History Medical History (Updated 01/25/25 @ 08:55 by David Leonard MD) Ganglion, unspecified site Contact dermatitis and eczema Skin neoplasm Post-menopausal Dermatofibroma Dermatitis Benign mole Skin cancer screening Cervical disc disorder at C6-C7 level with radiculopathy Radicular pain in left arm Neck Pain C7 radiculopathy Vaginal delivery x 2 Hematuria BMI 24.0-24.9, adult IBS (irritable bowel syndrome) Contact dermatitis and eczema Benign hypertension Hyperlipidemia Asthma Seasonal allergies GERD (gastroesophageal reflux disease) Surgical History Surgical History H/O bilateral cataract extraction History of Amisha fundoplication History of cholecystectomy H/O: hysterectomy History of back surgery Family History Family History Father Hypertension Family history of coronary artery disease Diabetes mellitus Colon polyp SCC (squamous cell carcinoma) BCC (basal cell carcinoma of skin) Mother Cerebrovascular accident Sibling BCC (basal cell carcinoma of skin) Other Family history of cardiovascular disease Social History Social History Smoking status: Never smoker Second hand tobacco smoke exposure: No Alcohol intake: current Alcohol use details: rarely Substance use: never Substance use type: does not use Living arrangements: with family Occupation/Education: retired Gender identity (if verbalized by the patient): Female Spiritual care concerns: No Meds Home Medications and Allergies Home Medications ?Medication ?Instructions ?Recorded ?Confirmed ?Type multivitamin 1 tablet PO DAILY 09/16/21 01/25/25 History albuterol sulfate 90 mcg/actuation 2 inh inhalation Q6H PRN Shortness 12/22/22 01/17/25 History aerosol inhaler Of Breath calcium 600 mg capsule 600 mg PO DAILY 12/22/22 01/25/25 History clobetasol 0.05 % topical cream 1 applic topical BID #45 grams 10/13/23 01/17/25 Rx fluocinonide 0.05 % topical 1 applic topical BID #60 mL 10/13/23 01/17/25 Rx solution metoprolol succinate 50 mg 50 mg PO DAILY #90 tabs 08/08/24 01/25/25 Rx tablet,extended release 24 hr (Toprol XL) guselkumab 100 mg/mL subcutaneous 100 mg subcut ONCE 10/18/24 01/17/25 History auto-injector (Tremfya) simvastatin 10 mg tablet 10 mg PO DAILY #90 tabs 11/02/24 01/25/25 Rx Allergies Allergy/AdvReac Type Severity Reaction Status Date / Time iodixanol Allergy Severe Hives / Verified 01/25/25 08:00 Red Face Vital Signs Vital Signs - 24 hr 01/25/25 08:02 Temperature 97.2 F L Pulse Rate 72 Respiratory Rate 16 Blood Pressure 141/85 H Pulse Oximetry 100 Oxygen Delivery Room Air Exam Const: General: comfortable and no acute distress HENMT: Face/Nose/Sinus: Normal nares present Eyes: General: appearance normal, both eyes and all related structures Neck: Neck: no JVD Resp: Auscultation: clear to auscultation bilaterally Cardio: Rate: regular rate Rhythm: regular rhythm GI: Inspection: non-distended GI Palp: Yes Soft to palpation Skin: General skin exam: normal color Neuro: Speech: normal speech Extrem: General: normal to inspection Psych: Mental Status: mental status grossly normal Assessment and Plan Assessment and plan (1) GERD (gastroesophageal reflux disease): Code(s): K21.9 - Gastro-esophageal reflux disease without esophagitis Status: Acute Assessment and Plan: egd with bx
[2025-01-25 09:10] VITALS: BP 123/84; PULSE 78; RESP 10; O2SAT 100
[2025-01-25 09:20] VITALS: BP 124/85; PULSE 84; RESP 16; O2SAT 100
[2025-01-25 09:30] VITALS: BP 124/82; PULSE 80; RESP 16; O2SAT 100
== END 2025-01-25 09:32 | disposition home or self-care (01) ==
PROVIDERS: PCP Family Medicine; Referring Provider Student in an Organized Health Care Education/Training Program; Visit Provider Internal Medicine Gastroenterology
PROC: 0DJ08ZZ Inspection of Upper Intestinal Tract, Via Natural or Artificial Opening Endoscopic (ICD-10-PCS; CPT 43239; principal; 2025-01-25 09:15)
DX: K21.9 Gastro-esophageal reflux disease without esophagitis (principal); K31.84 Gastroparesis; K58.9 Irritable bowel syndrome, unspecified; I10 Essential (primary) hypertension; E78.5 Hyperlipidemia, unspecified; J45.909 Unspecified asthma, uncomplicated; M50.123 Cervical disc disorder at C6-C7 level with radiculopathy; Z79.51 Long term (current) use of inhaled steroids; Z98.890 Other specified postprocedural states; Z98.1 Arthrodesis status; Z90.49 Acquired absence of other specified parts of digestive tract; Z83.719 Family history of colon polyps, unspecified; Z84.0 Family history of diseases of the skin and subcutaneous tissue; Z82.49 Family history of ischemic heart disease and other diseases of the circulatory system
CPT/HCPCS: 43239; 88305; J2003; J2704; J7120

== ENCOUNTER 2025-02-13 08:26 | Outpatient (CLI) | payer OTHER, SELFPAY ==
--- NOTE | ~2025-02-13 | NM_ITS ---
EXAM: NM gastric emptying study DATE: 02/13/2025 13:34 CDT INDICATION: Gastroesophageal reflux disease TECHNIQUE: A gastric emptying study was performed using the methodology of Jordan MAGDALENO, et al. J Nucl Med 2007; 48:568-572. The patient was given a meal consisting of 2 scrambled eggs labeled with mCi T c-99m sulfur colloid, 2 slices of toast, two packages of jam, and approximately 120 mL of water. Simu ltaneous anterior and posterior 1-min images of the abdomen were obtained with the patient supine at multiple time points over a total period of 4 hours. The geometric mean of anterior and posterior vie ws was determined, and the percentage retention was calculated for each time point. COMPARISON: CT abdomen dated 08/10/2013. FINDINGS: Gastric retention of the radiotracer-labeled meal was 35%, 9%, and 1% at the 1-hour, 2-jayde r, and 4-hour time points, respectively. With this technique, apparent rapid gastric emptying is sugg ested by <30% gastric retention at 1 hour. Delayed gastric emptying is defined by gastric retention o f >90% at 1 hour, >60% retention at 2 hours, or >10% retention at 4 hours. IMPRESSION: 1. Normal gastric emptying. Reviewed, dictated and finalized at location B. IMPRESSION: 1. Normal gastric emptying.
--- OUTSIDE RECORDS SUMMARY | 2025-02-13 08:41 | XMS_ITS | Clinical Summary ---
Author Organization [facility] [place] [address] Address [address] [place] [address] Care Team Providers Care Activities Director Scouting Name Role Phone Zulma Roberts MD Primary Care Provider [phone] Allergies Active Allergy Reactions Criticality Noted Date [...] Department Care Team Description 12/19/2024 11:45 AM ORTHOTIC AIDE Ancillary Procedure [facility] Medical Group Imaging at [address] [phone] Influenza A 12/19/2024 11:30 AM ORTHOTIC AIDE Office Visit [facility] Medical Group Convenient Care at [address] [phone] Krystal Nelson NP Influenza A (Primary Dx); Exacerbation of asthma, unspecified asthma severity, unspecified whether persistent 12/19/2024 Results Follow-Up [facility] Convenient Care at [address] [phone] Krystal Nelson NP 11/16/2024 12:17 PM ORTHOTIC AIDE - 11/16/2024 11:59 PM ORTHOTIC AIDE Hospital Encounter [facility] Radiology at the Orthopedic Center [address] [place] [phone] Discharge Disposition: Discharge to home or self care 11/16/2024 12:15 PM ORTHOTIC AIDE Office Visit [facility] [address] [place] [phone] Donald Urbina PA Contusion of right knee, [...] on file Legal Sex Female 1:34 AM ORTHOTIC AIDE Gender Identity Not on file Sexual Orientation Not on file Obstetrics History Last Filed Vital Signs Vital Sign Reading Time Taken Comments Blood Pressure 142/90 12/19/2024 11:27 AM ORTHOTIC AIDE Pulse 98 12/19/2024 11:44 AM ORTHOTIC AIDE Temperature 36.9 C (98.5 F) 12/19/2024 11:27 AM ORTHOTIC AIDE Respiratory Rate 20 12/19/2024 11:27 AM ORTHOTIC AIDE Oxygen Saturation 99% 12/19/2024 11:44 AM ORTHOTIC AIDE Inhaled Oxygen Concentration - - Weight 63.5 kg (140 lb) 12/19/2024 11:27 AM ORTHOTIC AIDE Height 160 cm (5' 3 ) 11/16/2024 12:10 PM ORTHOTIC AIDE Body Mass Index 24.8 11/16/2024 12:10 PM ORTHOTIC AIDE Plan of Treatment Health Maintenance Due Date [...] (Appt Today, Awaiting Results) 12/19/2024 11:51 AM ORTHOTIC AIDE Influenza A POC INFLUENZA A/B, COVID-19 ANTIGEN Routine 12/19/2024 11:47 AM ORTHOTIC AIDE Influenza A POCT RAPID STREP Routine 12/19/2024 11:4 6 AM ORTHOTIC AIDE Influenza A XR KNEE RIGHT 3 VIEWS Schedule Routine, Read Routine (OP Routine) 11/16/2024 12:25 PM ORTHOTIC AIDE Acute pain of right knee from Last 3 Months Results * XR Chest PA Lateral 2 Views (12/19/2024 11:51 AM ORTHOTIC AIDE) Anatomical Region Laterality Modality Body, Chest N/A Digital Radiogra phy 12/19/2024 12:3 2 PM ORTHOTIC AIDE Narrative 12/19/2024 12:32 PM ORTHOTIC AIDE EXAM DESCRIPTION: XR CHEST PA LATERAL 2 [...] Serjio Guerrero M.D. AM T: Report ID: [id number] Reading Location: [id number] Procedure Note Serjio Guerrero MD - 12/19/2024 [...] Serjio Guerrero M.D. AM T: Report ID: [id number] Reading Location: [id number] Krystal Nelson HOT MILL SUPERVISOR IMG XR PROCEDURES Final Result * (ABNORMAL) POC Influenza A/B, COVID-19 antigen (12/19/2024 11:47 AM ORTHOTIC AIDE) Influenza A Ag, POC Positive(A) Negative [facility] Influenza B Ag, POC Negative Negative [facility] COVID-19 Ag POC Presumptive Negative Presumptive Negative, Invalid [facility] Nasal 12/19/2024 11:4 7 AM ORTHOTIC AIDE Krystal Nelson NP POINT OF CARE TEST ORDERABLES F inal Result Performing Organization Address [facility] de Phone Number [facility] [address] [place] [address] * POCT rapid strep A (12/19/2024 11:46 AM ORTHOTIC AIDE) Rapid Strep A, POC Negative Negative Swab 12/19/2024 11:4 6 AM ORTHOTIC AIDE Krystal Nelson NP POINT OF CARE TEST ORDERABLES F inal Result * XR Knee Right 3 View (11/16/2024 12:25 PM ORTHOTIC AIDE) Anatomical Region Laterality Modality Lower Extremities, Knee Right Computed Radiography 11/16/2024 3:55 PM ORTHOTIC AIDE Impressions 11/16/2024 4:07 PM ORTHOTIC AIDE 1. Normal right knee radiographs. Dictated by: Johnny Duron MD The radiology attending physician has personally reviewed this study, and had reviewed and/or edited this written report and agrees with it. Electronically signed by: Amaury Rowland M.D. Narrative 11/16/2024 4:07 PM ORTHOTIC AIDE EXAMINATION: XR KNEE RIGHT 3 VIEWS HISTORY: [...] Final Result from Last 3 Months Insurance [employer] ID [facility] Address: [address] [place], [place] [id number] [facility] Address: [address] [address] Care Teams Activities Director Scouting Relationship Specialty Start Date End Date Zulma Roberts MD PCP - General Family Medicine 05/21/22
--- OUTSIDE RECORDS SUMMARY | 2025-02-13 08:41 | XMS_ITS | Encounter Summary ---
Author Organization [facility] Healthcare Address [address] [place] [address] Care Team Providers Care Hydrometer Finisher Name Role Phone Zulma Roberts MD Primary Care Provider [phone] Encounter Details Date Type Department Care Team (Late st Contact Info) Description 12/19/2024 Results Follow-Up [facility] Medical Group Convenient Care at [place] [address] [place] [phone] Krystal Nelson NP [address] [facility] [address] [place] [address] Social History Tobacco Use Types Packs/Day Years Used Date Smoking Tobacco: Never Smokeless Tobacco: Never Alcohol Use Standard Drinks/Week Comments No 0 (1 standard drink = 0.6 oz pur e alcohol) Comments Unknown Sex and Gender Information Value Date Recorded Sex Assigned at Not on file Legal Sex Female 1:34 AM TRANSPORTATION ATTENDANT Gender Identity Not on file Sexual Orientation Not on file documented as of this encounter Plan of Treatment Not on file documented as of this encounter Visit Diagnoses Not on filedocumented in this encounter Additional Health Concerns Infection Onset Date Last Indicated Resolved Time COVID: Suspected 12/19/2024 12/19/2024 12/19/2024 11:48 AM TRANSPORTATION ATTENDANT Influenza, adult 12/19/2024 12/19/2024 12/26/2024 3:05 AM TRANSPORTATION ATTENDANT documented as of this encounter Care Teams Hydrometer Finisher Relationship Specialty Start Date End Date Zulma Roberts MD PCP - General Family Medicine 05/21/22 documented as of this encounter
--- OUTSIDE RECORDS SUMMARY | 2025-02-13 08:41 | XMS_ITS | Data Portability ---
Author Organization [facility], Main Office Address [address] [place] [address] [address] [place] [address] Care Team Providers Care Collection Teller Name Role Phone RIVAS CROCKETT Referring Provider [phone] RIVAS CROCKETT Primary Care Provider [phone] Assessment No assessment recorded. Plan of [...] 35 40 45 50 55 60}} minutes [id number] with the patient and over 50% of this time was spent discussing treatment options, risks/benefits of each option and alternatives. Not available 09/15/2018 18:54:05 Reason for Referral None Reported. Problems Name Problem SNOMED Code Status Onset Date Resolution Date Notes Provider Name and Address Organization Details Recorded Time External hemorrhoids 95821117 Active 2016 Shannon Pina MD [address], [place], [address] , [facility] 11/05/201 8 23:52:45 Residual hemorrhoidal skin tags 23294734 Active 2016 Shannon Pina MD [address] [place] [address],[address], [place], [address], [facility] 8 23:53:04 Pile easily reducible 834898407 Active 2016 Tx #1: 12/08/16 1.2 x 10 LL Tx #2: 7 1.2 x 8 RP Tx #3: 7 1.1 x 6 RA Tx #4: 7 1.2 x 6 LL Tx #5: 03/05/17 1.2 x 4 RP and 1.2 x 3 RA Tx #6: 1.2 x 5 RP, x 5 LL and x 2 RA Shannon Pina MD [address] [place] [address],[address], [place], [address] , [facility] 8 18:41:55 Screening for malignant neoplasm of colon Active 2017 Shannon Pina MD [address] [place] [address],[address], [place], [address], [facility] 8 18:52:53 Problem Notes None recorded. Procedures Surgical History Date Name Laterality Status Provider Name and Address Organization Details Recorded Time 09/10/20 18 IRC completed Shannon Pina MD [address] [place] [address],[address], [place], [address], [facility] 09/15/2018 18:42:43 08/01/20 18 Date of Last Pap Smear [facility] 09/10/2018 13:35:31 03/01/20 18 Date of Last Mammogram completed [facility] 09/10/2018 13:35:28 11/01/19 18 Colonoscopy completed [facility] 09/10/2018 13:34:31 11/01/19 09 Colonoscopy completed Shannon Pina MD [address] [facility],[address], [place], [address], [facility] [place] 09/05/2018 23:52:08 11/01/18 98 Back Surgery completed [facility] 09/10/2018 13:34:40 Unlisted px posterior segmnt completed [facility] 07/19/2018 13:29:41 Cholecystectomy completed [facility] 07/19/2018 13:31:18 Hysterectomy completed [facility] 07/19/2018 13:31:28 Unlisted procedure stomach completed [facility] 07/19/2018 13:32:37 Bladder Surgery completed [facility] 09/10/2018 13:35:01 Mohsen fundoplication completed [facility] 09/10/2018 13:35:09 Imaging Results None recorded. Procedure Notes None recorded. Medical Equipment None Reported. Allergies Allergen ID Allergen Name Allergen Category Reaction Reaction Severity Criticality Documentation Date Start Date Code Code System Note Provider Name and Address Organization Details Recorded Time 1613 Visipaque medicatio n Not available Not available Not available 07/19/2018 56102 1 RxNorm Not Available Not Available Not [...] Address Organization Details Last Updated DateTime 8 96653.6 9 g 23.9 kg/m2 160.02 cm 98.5 [degF] 12 /min 75 /min 125 mm[Hg] 84 mm[Hg] [facility] 8 13:44:04 Social History Question Answer Notes LastModified by Organizat ion Details LastModified Time Tobacco Smoking Status Never Smoker Sammie barnett, [facility] 07/19/2018 13:34:00 How Much Tobacco Do You Chew? None [email or web address] Information not available 07/19/2018 Alcohol Use Yes [email or web address] Information not available 09/10/2018 Caffeine Use Yes [email or web address] Informatio n not available 09/10/2018 Caffeine Type Iced Tea [email or web address] Informati on not available 09/10/2018 Caffeine Amount 1-2/day [email or web address] Information not available 09/10/2018 Illicit Drug Use No [email or web address] Information not available 07/19/2018 What Was The Date Of Your Most Recent Tobacco Screening? 09/15/2018 Information n ot available 05/25/2019 Sex: Unknown Functional Status None recorded. Mental Status None recorded. Family History Relationship Description Onset Age of this Age Resolved Age Notes LastModified by Organization Details LastModified Time Father Coronary arterioscler osis 52 [email or web address] Not available 08/2018 13:32:44 Father Myocardial infarction 52 [email or web address] Not available 13:32:55 Father Polyp of colon Not available 08/2018 13:33:05 Father Hypertensive disorder [email or web address] Not available 08/2018 13:33:10 Mother Cerebrovascu lar accident 65 [email or web address] Not available 09/10/2018 13:33:30 Medical History Condition Response Arthritis/Gout Y Reflux/GERD Y High Cholesterol Y Hypertension Y Gynecological History Statement/Question Response Number of [...] Pina MD Main Office [address] [facility] [address] [place] [address] 09/10/2018 12:48:16 09/10/2018 14:13:48 Pile easily reducible 462320384 K64.1 Stage 2 internal hemorrhoid s: She has done well with infrared coagulatio n in the past and I think she would benefit now. I reviewed full informed consent with her including risks/bene fits and alternativ es. She wanted to proceed with treatment. Her 6th overall (1st in this series) treatment was done today on all 3 areas. External hemorrhoids 239 17797 K64.4 These will improve with IRC. She [...] needs. Screening for malignant neoplasm of colon [id number] Z12.11 She is up to date with [...] ID Guarantor Name 09/10/2018 1 [place]: (PPO) [id number] Sean Kwon [id number] Sean Kwon Notes Date Note Type [...] with dietary fiber. Shannon Pina MD [address] [facility],[address], [place], [address], [facility] 09/15/2018 18:55:15 OBGyn Episode No OBEpisode recorded.
--- OUTSIDE RECORDS SUMMARY | 2025-02-13 08:41 | XMS_ITS | Continuity of Care Document ---
Author Organization [facility] Address [address] [place] [address] [facility] [address] [place] [address] Phone Care Team Providers Care Hematology Nurse Educator Name Role Phone Michel Vo Unavailable Unavailable Advance Directives Directive Yes / No Effective Date File Name No Information Encounters Encounter Description Practice Location Reason(s) For Visit Diagnoses Date Provider Providers Copied on Encounter [facility], [address] [place] [address] [address], [place], [place], [id number], [place] tel:[phone] [facility] No Information 1-200 6 Gilda Pearson. [address] , [address], [place], [address], [place]. tel:[phone] Family History Family Member Type Diagnosis Age [...]
--- OUTSIDE RECORDS SUMMARY | 2025-02-13 08:41 | XMS_ITS | Clinical Summary ---
Author Organization [facility] Address [address] 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
--- OUTSIDE RECORDS SUMMARY | 2025-02-13 08:41 | XMS_ITS | Referral Summary ---
Author Organization [facility] [address] Address [address] [place] [address] Care Team Providers Care Veterans Service Officer Name Role Phone Zulma Roberts MD Primary Care Provider [phone] Encounters Date Type Department Care Team Description 12/19/2024 Results Follow-Up [facility] at [address] [phone] Krystal Nelson NP 12/19/2024 11:45 AM RAILROAD DINING CAR STEWARDESS Ancillary Procedure [facility] Imaging at [address] [address] Influenza A 12/19/2024 11:30 AM RAILROAD DINING CAR STEWARDESS Office Visit [facility] at [address] [address] Krystal Nelson NP Influenza A (Primary Dx); Exacerbation of asthma, unspecified asthma severity, unspecified whether persistent 11/16/2024 12:17 PM RAILROAD DINING CAR STEWARDESS - 11/16/2024 11:59 PM RAILROAD DINING CAR STEWARDESS Hospital Encounter [facility] [address] [place] [phone] Discharge Disposition: Discharge to home or self care 11/16/2024 12:15 PM RAILROAD DINING CAR STEWARDESS Office Visit [facility] [place] [facility] - [facility] [address] [place] [phone] Donald Urbina PA Contusion of right knee, [...] on file Legal Sex Female 1:34 AM RAILROAD DINING CAR STEWARDESS Gender Identity Not on file Sexual Orientation Not on file Last Filed Vital Signs Vital Sign Reading Time Taken Comments Blood Pressure 142/90 12/19/2024 11:27 AM RAILROAD DINING CAR STEWARDESS Pulse 98 12/19/2024 11:44 AM RAILROAD DINING CAR STEWARDESS Temperature 36.9 C (98.5 F) 12/19/2024 11:27 AM RAILROAD DINING CAR STEWARDESS Respiratory Rate 20 12/19/2024 11:27 AM RAILROAD DINING CAR STEWARDESS Oxygen Saturation 99% 12/19/2024 11:44 AM RAILROAD DINING CAR STEWARDESS Inhaled Oxygen Concentration - - Weight 63.5 kg (140 lb) 12/19/2024 11:27 AM RAILROAD DINING CAR STEWARDESS Height 160 cm (5' 3 ) 11/16/2024 12:10 PM RAILROAD DINING CAR STEWARDESS Body Mass Index 24.8 11/16/2024 12:10 PM RAILROAD DINING CAR STEWARDESS Plan of Treatment Not on file Procedures Procedure Name Priority Date/Time Associated Diagnosis Comments XR CHEST PA LATERAL 2 VIEWS Schedule JAH, Read JAH (Appt Today, Awaiting Results) 12/19/2024 11:51 AM RAILROAD DINING CAR STEWARDESS Influenza A POC INFLUENZA A/B, COVID-19 ANTIGEN Routine 12/19/2024 11:47 AM RAILROAD DINING CAR STEWARDESS Influenza A POCT RAPID STREP Routine 12/19/2024 11:4 6 AM RAILROAD DINING CAR STEWARDESS Influenza A XR KNEE RIGHT 3 VIEWS Schedule Routine, Read Routine (OP Routine) 11/16/2024 12:25 PM RAILROAD DINING CAR STEWARDESS Acute pain of right knee from Last 3 Months Results * XR Chest PA Lateral 2 Views (12/19/2024 11:51 AM RAILROAD DINING CAR STEWARDESS) Anatomical Region Laterality Modality Body, Chest N/A Digital Radiogra phy 12/19/2024 12:3 2 PM RAILROAD DINING CAR STEWARDESS Narrative 12/19/2024 12:32 PM RAILROAD DINING CAR STEWARDESS EXAM DESCRIPTION: XR CHEST PA LATERAL 2 [...] Serjio Guerrero M.D. AM T: Report ID: [id number] Reading Location: [id number] Procedure Note Serjio Guerrero MD - 12/19/2024 [...] Serjio Guerrero M.D. AM T: Report ID: [id number] Reading Location: [place] [address] Krystal Nelson STEAM DRIER OPERATOR IMG XR PROCEDURES Final Result * (ABNORMAL) POC Influenza A/B, COVID-19 antigen (12/19/2024 11:47 AM RAILROAD DINING CAR STEWARDESS) Pathologist [facility] Influenza A Ag, POC Positive(A) Negative [facility] Influenza B Ag, POC Negative Negative [facility] COVID-19 Ag POC Presumptive Negative Presumptive Negative, Invalid [facility] Nasal 12/19/2024 11:4 7 AM RAILROAD DINING CAR STEWARDESS Krystal Nelson NP POINT OF CARE TEST ORDERABLES F inal Result [facility] [address] [place] [address] * POCT rapid strep A (12/19/2024 11:46 AM RAILROAD DINING CAR STEWARDESS) Rapid Strep A, POC Negative Negative Swab 12/19/2024 11:4 6 AM RAILROAD DINING CAR STEWARDESS Krystal Nelson NP POINT OF CARE TEST ORDERABLES F inal Result * XR Knee Right 3 View (11/16/2024 12:25 PM RAILROAD DINING CAR STEWARDESS) Anatomical Region Laterality Modality Lower Extremities, Knee Right Computed Radiography 11/16/2024 3:55 PM RAILROAD DINING CAR STEWARDESS Impressions 11/16/2024 4:07 PM RAILROAD DINING CAR STEWARDESS 1. Normal right knee radiographs. Dictated by: Johnny Duron MD The radiology attending physician has personally reviewed this study, and had reviewed and/or edited this written report and agrees with it. Electronically signed by: Amaury Rowland M.D. Narrative 11/16/2024 4:07 PM RAILROAD DINING CAR STEWARDESS EXAMINATION: XR KNEE RIGHT 3 VIEWS HISTORY: [...] Final Result from Last 3 Months Insurance [facility] CHO[facility] PLUS [facility] CHOICE PLUS Care Teams Veterans Service Officer Relationship Specialty Start Date End Date Zulma Roberts MD PCP - General Family Medicine 05/21/22
== END 2025-02-13 08:27 | disposition home or self-care (01) ==
PROVIDERS: PCP Family Medicine; Visit Provider Internal Medicine Gastroenterology
DX: K21.9 Gastro-esophageal reflux disease without esophagitis (principal)
CPT/HCPCS: 78264; A9541

== ENCOUNTER 2025-06-04 10:26 | Outpatient (CLI) | payer OTHER, SELFPAY ==
--- NOTE | ~2025-06-04 | DEXA_ITS ---
Bone Density Report Name: KAMRAN FAY Age: 60 Sex: Female Ethnicity: White Date of : 1965 Indication: osteopenia; asthma or emphysema; hysterectomy; Referring Provider: KELLY ZHANG Study: Bone densitometry was performed. Exam Date: June 04, 2025 Accession number: [id number] Bone Density: Region BMD T-score Z-score Classification AP Spine(L1, L2, L3) 0.780 -2.2 -0.7 Osteopenia Femoral Neck (Left) 0.640 -1.9 -0.6 Osteopenia Total Hip (Left) 0.783 -1.3 -0.3 Osteopenia Femoral Neck (Right) 0.649 -1.8 -0.5 Osteopenia Total Hip (Right) 0.817 -1.0 0.0 Normal Total Hip Mean 0.800 -1.2 -0.2 Osteopenia World Health Organization criteria for BMD impression classify patients as: Normal (T-score at or above -1.0), Osteopenia (T-score between -1.0 and -2.5), or Osteoporosis (T-score at or below -2.5). 10-year Fracture Risk(1): Major Osteoporotic Fracture 9.3% Hip Fracture 1.1% Reported Risk Factors: [place] (), Neck BMD=0.640, BMI=25.2 (1) FRAX(R) Version 3.08. Fracture probability calculated for an untreated patient. Fracture probability may be lower if the patient has received treatment. Previous Exams: Region Exam Age BMD T-score BMD Change BMD Change Date g/cm2 vs Baseline vs Previous AP Spine (L1-L3) 06/04/2025 60 0.780 -2.2 -0.057 (-6.8%) -0.057 (-6.8%) 12/31/2021 56 0.837 -1.6 Total Hip(Left) 06/04/2025 60 0.783 -1.3 -0.073 (-8.6%) -0.073 (-8.6%) 12/31/2021 56 0.856 -0.7 Total Hip(Right) 06/04/2025 60 0.817 -1.0 0.007 (0.9%)# 0.007 (0.9%)# 12/31/2021 56 0.810 -1.1 *Denotes significance at 95% confidence level, LSC for AP Spine = 0.022 g/cm2, LSC for Total Hip = 0.027 g/cm2 # Denotes dissimilar scan types or analysis methods Clinical Information Provided by Patient: Has used the following medications: Vitamin D, Calcium Has the following medical conditions: Asthma or Emphysema, Hysterectomy Patient maximum height was 63.0 Menopause Age: 31 Drinks caffeinated beverages Onset of menses at age 12 Number of children 2 Impression: The patient has low bone mass, based on the Total Spine T-score. The patient has an estimated ten-year risk of hip fracture of 1.1% and an estimated ten-year risk of major fracture of 9.3%, based on the WHO FRAX algorithm. No significant bone loss was observed. Discussion: BONE DENSITY IS LOW AT ONE OR MORE SKELETAL SITES. This patient's lowest T-score is low at one or more skeletal sites. It meets the World Health Organization's (WHO) criteria for ?low bone mass? (T-score between -1.0 and -2.5). The patient's 10-year risk of fracture as calculated by FRAX is less than the threshold where pharmacological therapy is recommended by the National Osteoporosis Foundation (NOF). However, all treatment decisions require clinical judgment and consideration of individual patient factors, including patient preferences, comorbidities, previous drug use, risk factors not captured in the FRAX model (e.g., frailty, falls, vitamin D deficiency, increased bone turnover, interval significant decline in bone density) and possible under or overestimation of fracture risk by FRAX. The patient should follow a healthful lifestyle (good nutrition with adequate calcium and vitamin D, and appropriate weight-bearing exercise). Follow-Up: Consider repeating this study in 2 to 3 years to reassess this patient's status, or sooner if there is some new clinical indication. Reported by: TAYLER on 06/04/2025 11:03:00 AM. Reviewed, dictated and finalized at location A.
--- OUTSIDE RECORDS SUMMARY | 2025-06-04 10:51 | XMS_ITS | Referral Summary ---
Author Organization [facility] [address] Address [address] [place] [address] Care Team Providers Care Rooming House Inspector Name Role Phone Zulma Roberts MD Primary Care Provider [phone] Allergies Active Allergy Reactions Criticality Noted Date [...] on file Legal Sex Female 1:34 AM WASTE HAND Gender Identity Not on file Sexual Orientation Not on file Last Filed Vital Signs Vital Sign Reading Time Taken Comments Blood Pressure 142/90 12/19/2024 11:27 AM WASTE HAND Pulse 98 12/19/2024 11:44 AM WASTE HAND Temperature 36.9 C (98.5 F) 12/19/2024 11:27 AM WASTE HAND Respiratory Rate 20 12/19/2024 11:27 AM WASTE HAND Oxygen Saturation 99% 12/19/2024 11:44 AM WASTE HAND Inhaled Oxygen Concentration - - Weight 63.5 kg (140 lb) 12/19/2024 11:27 AM WASTE HAND Height 160 cm (5' 3) 11/16/2024 12:10 PM WASTE HAND Body Mass Index 24.8 11/16/2024 12:10 PM WASTE HAND Plan of Treatment Not on file Insurance REPLACED BY [facility] CHOICE PLUS [facility] H[facility]/PPO Address: [address] [place] [phone] [facility] CHOICE PLUS [facility] H[facility]/PPO Address: [address] [place] [phone] Care Teams Rooming House Inspector Relationship Specialty Start Date End Date Zulma Roberts MD PCP - General Family Medicine 05/21/22
--- OUTSIDE RECORDS SUMMARY | 2025-06-04 10:51 | XMS_ITS | Clinical Summary ---
Author Organization [facility] [address] Address [address] [place] [address] Care Team Providers Care Home Visit Field Care Manager Name Role Phone Zulma Roberts MD Primary Care Provider [phone] Allergies Active Allergy Reactions Criticality Noted Date [...] Overview (02/05/2017): HYPOGLYCEMIA NOS Knee pain 11/02/2013 Surgical History Surgery Date Site/Laterality Comments CHOLECYSTECTOMY [...] on file Legal Sex Female 1:34 AM METAL MOCKUP MAKER Gender Identity Not on file Sexual Orientation Not on file Obstetrics History Last Filed Vital Signs Vital Sign Reading Time Taken Comments Blood Pressure 142/90 12/19/2024 11:27 AM METAL MOCKUP MAKER Pulse 98 12/19/2024 11:44 AM METAL MOCKUP MAKER Temperature 36.9 C (98.5 F) 12/19/2024 11:27 AM METAL MOCKUP MAKER Respiratory Rate 20 12/19/2024 11:27 AM METAL MOCKUP MAKER Oxygen Saturation 99% 12/19/2024 11:44 AM METAL MOCKUP MAKER Inhaled Oxygen Concentration - - Weight 63.5 kg (140 lb) 12/19/2024 11:27 AM METAL MOCKUP MAKER Height 160 cm (5' 3) 11/16/2024 12:10 PM METAL MOCKUP MAKER Body Mass Index 24.8 11/16/2024 12:10 PM METAL MOCKUP MAKER Plan of Treatment Health Maintenance Due Date [...] 2024 11/04/2021, 02/03/2021, 01/13/2021 Influenza Vaccine (#1) 2025 , 08/05/2020, 08/03/2019, Additional history exists Insurance [facility] CHOICE PLUS [place] [id number] [facility] CHOICE PLUS Care Teams Home Visit Field Care Manager Relationship Specialty Start Date End Date Zulma Roberts MD PCP - General Family Medicine 05/21/22
--- OUTSIDE RECORDS SUMMARY | 2025-06-04 10:51 | XMS_ITS | Clinical Summary ---
Author Organization [facility] Address [address] [place] [address] Phone Care Team Providers Care Senior Production Manager Name Role Phone Zulma Roberts MD Primary Care Provider [phone] Social History Tobacco Use Types Packs/Day Years Used Date Smoking Tobacco: Never Assessed Comments Unknown Sex and Gender Information Value Date Recorded Sex Assigned at Not on file Legal Sex Female 9:41 AM TILE LAYER DRAINAGE Gender Identity Not on file Sexual Orientation Not on file Plan of Treatment Health Maintenance Due Date Last Done Comments DTAP/TDAP/TD VACCINES (1 - Tdap) 1983 HPV/Cotest (21-29) 1985 CERVICAL CANCER SCREENING 1994 HPV/Cotest (30-65) 1994 PAP SMEAR 1994 BREAST CANCER SCREENING 2004 COLORECTAL SCREENING 2009 Colorectal Cancer Screening 2009 FIT-DNA Q 3 years 2009 FIT/FOBT Q 1 year 2009 Flex Sig/CT Colonography Q 5 years 2009 ZOSTER VACCINE (1 of 2) 2014 INFLUENZA VACCINE (#1) 2025 RSV VACCINE (60+ or ) (1 - 1-dose 75+ series) 2039 Care Teams Senior Production Manager Relationship Specialty Start Date End Date Zulma Roberts MD [address] [place] [address] PCP - General Family Practice 11/30/22
== END 2025-06-04 10:27 | disposition home or self-care (01) ==
LOC: ANHIMG 10:28
PROVIDERS: PCP Family Medicine; Visit Provider Nurse Practitioner Family
DX: M85.88 Other specified disorders of bone density and structure, other site (principal); M85.852 Other specified disorders of bone density and structure, left thigh; M85.851 Other specified disorders of bone density and structure, right thigh
CPT/HCPCS: 77080